=== PATIENT | female | born 1990 | race Caucasian/White ===

== ENCOUNTER 2020-03-29 08:24 | Outpatient (REF) | payer OTHER, SELFPAY ==
[2020-03-31 16:43] LABS: HPV mRNA E6/E7 rflx Not Detected (Not Detected)
== END 2020-03-29 08:25 | disposition home or self-care (01) ==
LOC: HO.LAB 08:24
PROVIDERS: Visit Provider Advanced Practice Midwife
DX: Z01.419 Encounter for gynecological examination (general) (routine) without abnormal findings (principal); Z80.3 Family history of malignant neoplasm of breast; Z31.69 Encounter for other general counseling and advice on procreation; Z86.19 Personal history of other infectious and parasitic diseases
CPT/HCPCS: 87624; 87625; 88142